=== PATIENT | female | born 1965 | race Caucasian/White ===

== ENCOUNTER 2017-07-15 05:46 | Day surgery (SDC) | payer OTHER ==
[2017-07-15] MEDS ORDERED: LIDOCAINE 1% 2 ML INJ ID PRN (06:11)
[2017-07-15] MEDS ORDERED: LR 1,000 ML IV ONE (06:11)
[2017-07-15] MEDS ORDERED: BUPIVACAINE/EPI 0.5% 30 ML SDV ONE (06:50)
[2017-07-15] MEDS ORDERED: BUPIVACAINE 0.5% 30 ML SDV ONE (06:51)
[2017-07-15] MEDS ORDERED: ceFAZolin 2 GM/SWFI 2 GM/20 ML SYR IVP ONE (07:00)
--- NOTE | 2017-07-15 07:07 | PDHPUP ---
History & Physical Update H&P update statement: This history and physical update is based on an assessment of the patient which was completed after admission or registration (within 24 hours), but prior to the surgery/procedure. H&P update: H&P reviewed & patient examined, no change in patient's condition since H&P completed
[2017-07-15] MEDS ORDERED: MIDAZOLAM 2 MG/2 ML VIAL IVP ONE (07:10)
--- NOTE | 2017-07-15 07:13 | PDANEPAE ---
ANE Past Medical History - Cardiovascular History Hx Hypertension: Yes Hx Arrhythmias: No Hx Chest Pain: No Hx Coronary Artery / Peripheral Vascular Disease: No Hx CHF / Valvular Disease: No Hx Palpitations: No - Pulmonary History Hx COPD: No Hx Asthma/Reactive Airway Disease: No Hx Recent Upper Respiratory Infection: No Hx Oxygen in Use at Home: No Hx Sleep Apnea: No Sleep Apnea Screening Result - Last Documented: Negative - Neurologic History Hx Cerebrovascular Accident: No Hx Seizures: No Hx Dementia: No - Endocrine History Hx Diabetes: Yes Hypothyroid: No Hyperthyroid: No Obesity: mild Endocrine History Comment: DM II - Renal History Hx Renal Disorders: No - Liver History Hx Hepatic Disorders: No - Neurological & Psychiatric Hx Hx Neurological and Psychiatric Disorders: No - Cancer History Hx Cancer: No - Congenital Disorder History Hx Congenital Disorders: No - GI History Hx Gastrointestinal Disorders: Yes Gastrointestinal History Comment: ACID REFLUX - Other Health History Other Health History: NEG - Chronic Pain History Chronic Pain: Yes (GENERALIZED) - Surgical History Prior Surgeries: 2008 DISC SURGERY LUMBAR. 2009 DISC SURGERY LUMBAR. 2009 FUSION LUMBAR. L HAND SURGERY ANE Review of Systems Review of Systems: - Exercise capacity METS (RN): 4 METS ANE Patient History - Allergies Allergies/Adverse Reactions: oxycodone [From OxyContin] Allergy (Verified 07/07/17 12:36) INCREASED HEART RATE & SOB Penicillins Allergy (Verified 07/13/17 16:51) Rash - Home Medications Home Medications: Ambien 07/07/17 [Last Taken 07/14/17] Aspirin 07/07/17 [Last Taken 07/08/17] Biotin 07/07/17 [Last Taken 07/08/17] Hydrocodone Bit/Acetaminophen 07/07/17 [Last Taken 07/14/17] Metformin HCl 07/07/17 [Last Taken 07/13/17] Metoprolol Succinate 07/07/17 [Last Taken 07/15/17 04:30] Pantoprazole Sodium 07/07/17 [Last Taken 07/15/17 04:30] Tradjenta 07/07/17 [Last Taken 07/14/17] - NPO status NPO Since - Liquids (Date): 07/14/17 NPO Since - Liquids (Time): 20:00 NPO Since - Solids (Date): 07/14/17 NPO Since - Solids (Time): 19:00 - Smoking Hx Smoking Status: Never smoked - Family Anes Hx Family Hx Anesthesia Complications: NEG ANE Labs/Vital Signs - Vital Signs Blood Pressure: 155/85 Heart Rate: 67 Respiratory Rate: 16 O2 Sat (%): 96 Height: 154.94 cm Weight: 58 kg ANE Physical Exam - Airway Neck exam: FROM Mallampati Score: Class 1 Mouth exam: normal dental/mouth exam - Pulmonary Pulmonary: no respiratory distress - Cardiovascular Cardiovascular: regular rate and rhythym - ASA Status ASA Status: II ANE Anesthesia Plan Anesthesia Plan: general endotracheal anesthesia
[2017-07-15] MEDS ORDERED: ROCURONIUM 100 MG/10 ML VIAL ONE (07:18)
[2017-07-15] MEDS ORDERED: fentaNYL 250 MCG/5 ML INJ ONE (07:18)
[2017-07-15] MEDS ORDERED: PROPOFOL/EMULSION 500 MG/50 ML BOTTLE IV ONE (07:18)
[2017-07-15] MEDS ORDERED: MIDAZOLAM 2 MG/2 ML VIAL ONE (07:19)
[2017-07-15] MEDS ORDERED: LIDOCAINE 2% 5 ML SDV ONE (07:22)
[2017-07-15] MEDS ORDERED: DEPO METHYLPREDNISOLONE 40 MG/ML SDV ONE (07:40)
[2017-07-15] MEDS ORDERED: ONDANSETRON 4 MG/2 ML VIAL ONE (08:33)
[2017-07-15] MEDS ORDERED: DEXAMETHASONE 4 MG/ML VIAL ONE (08:33)
[2017-07-15] MEDS ORDERED: SUGAMMADEX SODIUM 200 MG/2 ML VIAL IVP ONE (09:04)
[2017-07-15] MEDS ORDERED: KETOROLAC 30 MG/1 ML SDV ONE (09:04)
[2017-07-15] MEDS ORDERED: HYDROmorphONE/DILAUDID 2 MG/ML INJ ONE (09:07)
[2017-07-15] MEDS ORDERED: LABETALOL HCL 5 MG/ML 20 ML MDV ONE (09:30)
[2017-07-15] MEDS ORDERED: LABETALOL HCL 5 MG/ML 20 ML MDV IVP PRN (09:32)
[2017-07-15] MEDS ORDERED: NALOXONE HCL 0.4 MG/ML INJ IVP PRN ×2 (09:32→09:33)
[2017-07-15] MEDS ORDERED: HYDROmorphONE/DILAUDID 1 MG/ML INJ IVP PRN (09:32)
[2017-07-15] MEDS ORDERED: PROMETHAZINE HCL 25 MG/ML INJ IVP PRN (09:33)
[2017-07-15] MEDS ORDERED: LR 500 ML IV PRN (09:33)
--- NOTE | 2017-07-15 09:34 | POSTANESTH ---
Post Anesthetic Evaluation Cardiovascular Status: Normal, Stable Respiratory Status: Normal, Stable Level of Consciousness/Mental Status: Can Participate in Eval Pain Control: Adequate, Prn Tx Ordered Nausea/Vomiting Control: Adequate, Prn Tx Ordered Complications Possibly Related to Anesthesia: None Noted
[2017-07-15] MEDS ORDERED: fentaNYL 100 MCG/2 ML INJ ONE (09:39)
--- NOTE | 2017-07-15 09:39 | POSTOPPROG ---
Post Op Note Date of Operation: 07/15/17 Surgeon: Kalina Devries Barge Loader: Veronique Harris PA-C Anesthesiologist: Dr. Roach Anesthesia: GET(General Endotracheal) Pre-op Diagnosis: right shoulder pain Post-op Diagnosis: right shoulder pain Indication: right shoulder pain Procedure: R shoulder SAD, DCE, debridement, bicep tenotomy; trigger finger injection Inf/Abcess present in the surg proc area at time of surgery?: No EBL: Minimal Complications: none
[2017-07-15] MEDS: fentaNYL 100 MCG/2 ML INJ IVP PRN ×2 (09:40→09:47)
--- NOTE | 2017-07-15 09:41 | SOAPPROG ---
SOAP Progress Note Assessment/Plan: Assessment/Plan: 52y/o female s/p right shoulder SAD, DCE, debridement, biceps tenotomy; 3rd digit trigger finger injection - orders as written - sling, ok for pendulum swings - home when PACU criteria met - call with issues or concerns 07/15/17 09:39 Subjective: Right shoulder pain Objective: Vital Signs Temp Pulse Resp BP Pulse Ox 35.8 C L 58 L 17 160/90 H 99 07/15/17 09:33 07/15/17 09:33 07/15/17 09:36 07/15/17 09:36 07/15/17 09:36 NAD, mild distress due to pain EOMi, face symmetric MAEx4 incisions clean, dressed ICD10 Worksheet Patient Problems: Problems Problem Status Onset Shoulder pain Acute - ICD10 Problem Qualifiers (1) Shoulder pain
[2017-07-15] MEDS ORDERED: HYDROmorphONE/DILAUDID 1 MG/ML INJ ONE (10:06)
[2017-07-15 10:16] VITALS: RESP 16; TEMP 97
--- NOTE | 2017-07-15 10:32 | GOP ---
[f rep st] OPERATIVE REPORT DATE OF OPERATION: 07/15/2017 SURGEON: Kalina Devries MD WEIGHT LOSS PHYSICIAN: JUAN Du ANESTHESIA: General. PREOPERATIVE DIAGNOSIS: Impingement syndrome, with severe biceps tendinitis, SLAP tear and partial-t hickness rotator cuff tear with acromioclavicular arthritis right shoulder and trigger finger right m iddle finger. POSTOPERATIVE DIAGNOSIS: Impingement syndrome with severe biceps tendinitis, SLAP tear and partial t hickness rotator cuff tear with acromioclavicular arthritis right shoulder and trigger finger right m iddle finger. PROCEDURE PERFORMED: Arthroscopy, arthroscopic debridement of SLAP tear, biceps tendon and subacromi al bursitis with biceps tenotomy, subacromial decompression, distal clavicle excision and injection o f trigger finger, right middle finger. FINDINGS: A diagnostic arthroscopy of the right shoulder was performed with the following findings: The patient had normal glenohumeral articular cartilage. She had a normal labrum aside from the are a of the biceps anchor from 10 o'clock to 2 o'clock where she had a SLAP tear. She had severe biceps tendinitis with fraying of the biceps tendon. The biceps tendon was released and the SLAP tear was debrided. The undersurface of the rotator cuff was inspected and the patient did have a partial-thic kness rotator cuff tear involving the supraspinatus. This involved approximately 20%-30% of the thic kness of the tendon. The articular side of the rotator cuff was debrided with a shaver. The scope w as then placed in the subacromial space and extensive debridement of subacromial bursitis was perform ed. The rotator cuff was inspected from the bursal surface and noted to be intact. The patient had a large anterolateral subacromial spur which was removed. Approximately 8-10 mm of the anterolateral acromion was removed with a bur. The subacromial decompression was carried across to the AC joint. Once the subacromial space was well decompressed, the instrumentation was removed and the distal cla vicle excision was performed. A 1 cm piece of the distal clavicle was excised. The patient was note d to have significant loss of the articular cartilage in the AC joint as well as spur on the undersur face of the clavicle. Finally, at the completion of the procedure, the right middle finger was injec franco with 40 mg of Depo-Medrol and 1 cc of Marcaine into the flexor tendon sheath at the A1 thad. ESTIMATED BLOOD LOSS: Minimal. DESCRIPTION OF PROCEDURE: The patient was taken to the operating room, placed in a supine position o n the operating table. Following induction of adequate general inhalation anesthesia, the shoulder a nd arm were prepped and draped in the usual sterile manner. The patient was placed in the lateral de cubitus position and carefully padded. Her arm was placed in 10 pounds of longitudinal traction. Sh e received 2 g of IV Ancef. The arthroscope was introduced through a posterior portal and the instru mentation through an anterior portal. A diagnostic arthroscopy was performed with the above-noted fi ndings. Our attention was turned first to the intra-articular pathology. The shaver was used to alyse ride the biceps tendon and the SLAP tear. It was also used to debride the undersurface of the rotato r cuff. The basket was then inserted and a biceps tenotomy was performed. Once this was completed, the scope was placed in the subacromial space and a lateral working portal was created. Further debr idement of the subacromial space was performed. Once the undersurface of the acromion was cleared, t he bur was inserted and a subacromial decompression was performed. The rasp was then used to smooth the undersurface of the acromion. The bursal surface of the rotator cuff was carefully inspected and no significant tearing of the bursal side was noted. The instrumentation was then removed and a 3 c m incision was made along the distal end of the clavicle. Incision was carried down through the subc utaneous tissue to the AC joint. The fascia overlying the AC joint was split in a T-fashion and retr acted and then the distal 1 cm clavicle was excised with a saw. The wound was irrigated out and the fascia was repaired using 0 Vicryl followed by 2-0 Vicryl, the subcutaneous tissue, and 4-0 Vicryl in the skin. Steri-Strips and sterile dressings were applied. The portals were closed using 4-0 nylon . The shoulder was injected with 20 cc of 0.5% Marcaine with epinephrine. Finally, the hand was pre pped and the flexor tendon sheath of the middle finger on the right hand was injected with 40 mg of D epo-Medrol and 1 cc of Marcaine. The patient tolerated the procedure well. There were no complicati ons. Estimated blood loss minimal. Final sponge, needle counts were correct. The patient was trans ferred to the recovery room in good condition. /[id number]/MODL
[2017-07-15 11:20] VITALS: O2SAT 95
[2017-07-15 11:21] VITALS: BP 152/78; PULSE 57
== END 2017-07-15 11:08 | disposition home or self-care (01) ==
LOC: FSGY 05:46 → MERGE 05:46 → FSGY 11:08
PROVIDERS: ATTEND Orthopaedic Surgery
DX: M75.41 Impingement syndrome of right shoulder (principal); M75.111 Incomplete rotator cuff tear or rupture of right shoulder, not specified as traumatic; M75.51 Bursitis of right shoulder; M75.21 Bicipital tendinitis, right shoulder; M67.921 Unspecified disorder of synovium and tendon, right upper arm; M19.011 Primary osteoarthritis, right shoulder; M25.711 Osteophyte, right shoulder; M65.331 Trigger finger, right middle finger; M25.511 Pain in right shoulder; E11.9 Type 2 diabetes mellitus without complications; K21.9 Gastro-esophageal reflux disease without esophagitis; I10 Essential (primary) hypertension
CPT/HCPCS: J0171; J0690; J1030; J1100; J1170; J1885; J2250; J2405; J2704; J3010; J3490

== ENCOUNTER 2018-01-24 05:55 | Day surgery (SDC) | payer OTHER ==
[2018-01-24] MEDS ORDERED: ceFAZolin 2 GM/DEXTROSE 100 ML IV ONE (06:05)
[2018-01-24] MEDS ORDERED: LR 1,000 ML IV ONE (06:07)
[2018-01-24] MEDS ORDERED: LIDOCAINE 1% 2 ML INJ ID PRN (06:07)
[2018-01-24] MEDS ORDERED: MIDAZOLAM 2 MG/2 ML VIAL IVP ONE (06:52)
--- NOTE | 2018-01-24 06:55 | PDANEPAE ---
ANE Past Medical History - Cardiovascular History Hx Hypertension: Yes Hx Arrhythmias: No Hx Chest Pain: No Hx Coronary Artery / Peripheral Vascular Disease: No Hx CHF / Valvular Disease: No Hx Palpitations: No Cardiovascular History Comment: NO CP - Pulmonary History Hx COPD: No Hx Asthma/Reactive Airway Disease: No Hx Recent Upper Respiratory Infection: No Hx Oxygen in Use at Home: No Hx Sleep Apnea: No Sleep Apnea Screening Result - Last Documented: Negative Pulmonary History Comment: DOES NOT DO STAIRS. CAN WALK 2 BLOCKS WITHOUT SOB - Neurologic History Hx Cerebrovascular Accident: No Hx Seizures: No Hx Dementia: No Neurologic History Comment: MIGRAINES. N/T JOLENE ARMS - Endocrine History Hx Diabetes: Yes Endocrine History Comment: DM II - Renal History Hx Renal Disorders: No - Liver History Hx Hepatic Disorders: No - Neurological & Psychiatric Hx Hx Neurological and Psychiatric Disorders: No - Cancer History Hx Cancer: No - Congenital Disorder History Hx Congenital Disorders: No - GI History GERD: mild Hx Gastrointestinal Disorders: Yes Gastrointestinal History Comment: ACID REFLUX - Other Health History Other Health History: ROTATOR CUFF INFLAMATION - Chronic Pain History Chronic Pain: Yes (RT SHLDR) - Surgical History Prior Surgeries: RT SHLDR SCOPE 07/15/17. 2008 DISC SURGERY LUMBAR. 2009 DISC SURGERY LUMBAR. 2010 FUSION LUMBAR. L HAND SURGERY ANE Review of Systems Review of Systems: - Exercise capacity METS (RN): 4 METS ANE Patient History - Allergies Allergies/Adverse Reactions: oxycodone HCl [From Percocet] Allergy (Severe, Verified 10/08/13 19:18) FAST HEART RATE/SOB Penicillins Allergy (Intermediate, Verified 10/08/13 19:18) Rash lisinopril Allergy (Unknown, Verified 07/11/14 15:21) Unknown oxycodone [From OxyContin] Allergy (Verified 07/07/17 12:36) INCREASED HEART RATE & SOB - Home Medications Home medications: home medication list seen and reviewed Home Medications: Hydrocodone/Acetaminophen [[place] 7.5-325 Tablet] 1 - 2 each PO Q4-6PRN PRN 07/17 [Last Taken 01/23/18 22:00] glipiZIDE [Glipizide] 20 mg PO BID 07/17/14 [Last Taken 01/23/18] metFORMIN HCL [Glucophage] 500 mg PO BIDMEAL 07/17/14 [Last Taken 01/23/18] Ambien HS 07/07/17 [Last Taken 01/23/18 22:00] Aspirin DAILY 07/07/17 [Last Taken 2 Weeks Ago ~01/10/18] Metoprolol Succinate DAILY 07/07/17 [Last Taken 01/23/18] Tradjenta DAILY 07/07/17 [Last Taken 01/23/18] HCTZ (*) DAILY 01/11/18 [Last Taken 01/24/18 05:00] Pantoprazole Sodium DAILY 01/11/18 [Last Taken 01/24/18 05:00] SIMVASTATIN HS 01/11/18 [Last Taken 01/23/18] - NPO status NPO Status: no food or drink >8 hours NPO Since - Liquids (Date): 01/24/18 NPO Since - Liquids (Time): 05:00 NPO Since - Solids (Date): 01/23/18 NPO Since - Solids (Time): 22:00 - Anes Hx Anes Hx: no prior problems - Smoking Hx Smoking Status: Never smoked - Family Anes Hx Family Hx Anesthesia Complications: NEG ANE Labs/Vital Signs - Vital Signs Blood Pressure: 143/89 Heart Rate: 81 Respiratory Rate: 16 O2 Sat (%): 96 Height: 157.48 cm Weight: 69.853 kg ANE Physical Exam - Airway Neck exam: FROM Mallampati Score: Class 2 Mouth exam: normal dental/mouth exam - Pulmonary Pulmonary: no respiratory distress, no rales or rhonchi, clear to auscultation - Cardiovascular Cardiovascular: regular rate and rhythym, no murmur, rub, or gallop - ASA Status ASA Status: II ANE Anesthesia Plan Anesthesia Plan: general endotracheal anesthesia
[2018-01-24] MEDS ORDERED: BUPIVACAINE/EPI 0.5% 30 ML SDV ONE ×2 (06:56→07:19)
[2018-01-24] MEDS ORDERED: EPINEPHrine 30 MG/30 ML MDV (0.1 MG/0.1 ML) ONE (06:57)
[2018-01-24] MEDS ORDERED: POLYMYXIN B SULFATE 500,000 UNIT/10 ML SYR IRR ONE (06:57)
[2018-01-24] MEDS ORDERED: BACITRACIN 50,000 UNITS/10 ML SYR IRR ONE (06:57)
[2018-01-24] MEDS ORDERED: BUPIVACAINE 0.5% 30 ML SDV ONE (06:57)
[2018-01-24] MEDS ORDERED: DEXAMETHASONE 4 MG/ML VIAL ONE (07:02)
[2018-01-24] MEDS ORDERED: fentaNYL 100 MCG/2 ML INJ ONE (07:02)
[2018-01-24] MEDS ORDERED: ONDANSETRON 4 MG/2 ML VIAL ONE (07:02)
[2018-01-24] MEDS ORDERED: ROCURONIUM 50 MG/5 ML VIAL ONE (07:02)
[2018-01-24] MEDS ORDERED: PROPOFOL 200 MG/20 ML VIAL ONE (07:02)
[2018-01-24] MEDS ORDERED: LIDOCAINE 2% 2 ML INJ ONE ×2 (07:02→07:05)
[2018-01-24] MEDS ORDERED: NEOSTIGMINE METHYLSULFATE 5 MG/5 ML SYR ONE (07:03)
[2018-01-24] MEDS ORDERED: GLYCOPYRROLATE 0.2 MG/1 ML VIAL ONE ×2 (07:03)
[2018-01-24] MEDS ORDERED: LIDO/EPI 2%** Not for Epidural 20 ML MDV ONE (07:23)
[2018-01-24] MEDS ORDERED: HYDROCODONE/APAP 5/325 TAB PO PRN ×2 (10:11→10:12)
[2018-01-24] MEDS ORDERED: fentaNYL 100 MCG/2 ML INJ IVP PRN (10:11)
[2018-01-24] MEDS ORDERED: NALOXONE HCL 0.4 MG/ML INJ IVP PRN (10:11)
[2018-01-24] MEDS ORDERED: LR 500 ML IV PRN (10:11)
[2018-01-24] MEDS ORDERED: LABETALOL HCL 5 MG/ML 20 ML MDV IVP PRN (10:11)
[2018-01-24] MEDS ORDERED: ONDANSETRON DISINTEGRATING 4 MG TAB PO PRN (10:11)
[2018-01-24] MEDS ORDERED: ACETAMINOPHEN 500 MG TAB PO PRN (10:11)
[2018-01-24] MEDS ORDERED: ONDANSETRON 4 MG/2 ML VIAL IVP PRN ×2 (10:11)
[2018-01-24] MEDS ORDERED: MEPERIDINE 25 MG/0.5 ML AMP IVP PRN (10:11)
[2018-01-24] MEDS ORDERED: PROMETHAZINE HCL 25 MG/ML INJ IVP PRN (10:11)
--- NOTE | 2018-01-24 10:14 | POSTANESTH ---
Post Anesthetic Evaluation Cardiovascular Status: Similar to Pre-Op Cond Respiratory Status: Normal, Stable, Similar to Pre-op Cond. Level of Consciousness/Mental Status: Can Participate in Eval, Mildly Sleepy, Arousable Pain Control: Inadeq, Add Tx Required Nausea/Vomiting Control: Adequate, Prn Tx Ordered Complications Possibly Related to Anesthesia: None Noted
--- NOTE | 2018-01-24 10:21 | POSTOPPROG ---
Post Op Note Date of Operation: 01/24/18 Surgeon: Kalina Devries Manager Of Application Development: Veronique Harris PA-C Anesthesiologist: Dr. Benton Anesthesia: GET(General Endotracheal) Pre-op Diagnosis: right shoulder pain, rotator cuff tear, trigger finger Post-op Diagnosis: rotator cuff tear, trigger finger Indication: right shoulder pain, trigger finger Procedure: right shoulder rotator cuff repair, right trigger finger release Inf/Abcess present in the surg proc area at time of surgery?: No EBL: Minimal Complications: none
--- NOTE | 2018-01-24 10:23 | SOAPPROG ---
SOAP Progress Note Assessment/Plan: Assessment/Plan: 52yo female s/p right shoulder rotator cuff repair, trigger finger release -stable and doing well - sling at all times - splint for hand - cryocuff - orders as written, dc when PACU criteria met - call with issues/concerns, f/u in 7 days 01/24/18 10:21 Subjective: Right shoulder pain Objective: Vital Signs Temp Pulse Resp BP Pulse Ox 36.7 C 81 16 143/89 H 96 01/24/18 06:22 01/24/18 06:55 01/24/18 06:55 01/24/18 06:55 01/24/18 06:55 NAD, well appearing, no distress EOMi, face symmetric wiggles fingers on the right incisions clean, dressed ICD10 Worksheet Patient Problems: Problems Problem Status Onset Shoulder pain Acute
[2018-01-24 12:53] VITALS: BP 137/91
--- NOTE | 2018-01-24 18:21 | GOP ---
[f rep st] OPERATIVE REPORT DATE OF OPERATION: 01/24/2018 SURGEON: Kalina Devries MD DRAPERY CUTTER MACHINE: Kaley Harris PA-C. ANESTHESIA: General with interscalene block. PREOPERATIVE DIAGNOSIS: Rotator cuff tear right shoulder, trigger finger right long finger. POSTOPERATIVE DIAGNOSIS: Rotator cuff tear right shoulder, trigger finger right long finger. PROCEDURE PERFORMED: Arthroscopy, arthroscopic debridement of rotator cuff tear and arthroscopic rotator cuff repair right shoulder, with trigger finger release right long finger. FINDINGS: A diagnostic arthroscopy of the right shoulder was performed with the following findings. The patient had normal glenohumeral articular cartilage. Patient had a previous biceps tenodesis. The biceps tendon was absent. There was no significant tear of the superior labrum. The entire labrum was normal in appearance. The patient had some mild fraying of the superior fibers of subscapularis, which were debrided with a shaver. The patient had a near full-thickness articular sided rotator cuff tear involving approximately 90% of the fibers of the supraspinatus tendon. The scope was then placed in the subacromial space, and the patient had severe subacromial bursitis. Subacromial bursa was debrided. The rotator cuff was inspected from the bursal surface and was intact from the bursal surface. The remaining fibers of the rotator cuff were released. This was approximately 10% of the fibers of the supraspinatus. There was significant degeneration of the tendon quality throughout the supraspinatus tendon. An arthroscopic rotator cuff repair was performed. Two Fiber Tapes were placed in horizontal mattress fashion through the supraspinatus tendon. The tendon was then fixated laterally in the greater tuberosity with 2 SwiveLock suture anchors. The posterior limbs from both sides of the Fiber Tapes were pulled anterior into the anterior anchor and then anterior limbs were pulled posteriorly into the posterior anchor. This pulled the tendon down into anatomic position and compressed it at the footprint against a bed of bleeding bone, which was created with a bur. Excellent repair of the tendon was obtained. Once this was completed, the hand was exposed and the trigger finger release was performed on the right middle finger. An incision was made at the base of the middle finger in the region of the MCP joint. The A1 thad was then released in its entirety. There was complete obliteration of the triggering postop. ESTIMATED BLOOD LOSS: Minimal. DESCRIPTION OF PROCEDURE: The patient was taken the operating room, placed in supine position on the operating table. Following induction of adequate general anesthesia and placement of an interscalene block, the patient was turned to the lateral decubitus position and carefully padded. The shoulder and arm were then prepped and draped in the usual sterile manner. The patient received 1 g of IV Ancef. The arthroscope was introduced through a posterior portal and the instrumentation through an anterior portal. A diagnostic arthroscopy was performed with the above-noted findings. Our attention was turned first to the intra-articular pathology. The shaver was used to debride the synovitis is within the shoulder joint. The patient did have marked synovitis. The superior fibers of the subscapularis were also debrided. Finally, the undersurface of the rotator cuff was debrided. The scope was then placed in the subacromial space and a lateral working portal was created. Further debridement of the subacromial space was also performed. There was severe subacromial bursitis. The bursal surface of the rotator cuff was inspected and there was attenuation of the supraspinatus noted. The remaining fibers of the supraspinatus were released, and then, the edge of the supraspinatus was debrided. The tendon quality was poor. The footprint area was burred to create a bed of bleeding bone. Next, the scorpion suture passer was used to pass 2 Fiber Tapes in a horizontal mattress fashion. The lateral aspect of the greater tuberosity was cleared and then 2 SwiveLock suture anchors were placed laterally, 1 containing the posterior limbs of each to that Fiber Tapes and the other containing the anterior limbs of each of the Fiber Tapes. This pulled the tendon down into anatomic position and compressed at the footprint. Anatomic repair of the tendon was obtained. The instrumentation was then removed and the incisions were closed using 4-0 nylon in interrupted fashion. Next our attention was turned to the left trigger finger. The hand had been previously prepped. It was exposed. A transverse incision was made over the region of the MCP joint of the long finger on the palmar aspect of the hand. Incision was carried down through the subcutaneous tissue exposing the flexor tendon sheath. The A1 thad was located and released in its entirety. The incision was then closed using 4-0 nylon in interrupted fashion. Sterile dressings were applied. The patient tolerated the procedure well, and there were no complications. Estimated blood loss minimal. Final sponge, needle counts were correct. The patient was transported to the recovery room in good condition. ADDENDUM: In addition to the 2 SwiveLock suture anchors, there was a small dog ear at the posterior apex of the rotator cuff repair, so a FiberLink suture was placed in this area with the Gigwalkion suture passer. It was then tacked down using a 3.5 Arthrex SutureTak anchor posterior to the other 2 anchors. This reapproximated the posterior most aspect of the rotator cuff and compressed it down to the footprint area. /[id number]/MODL and [id number]/MODL [facility]
== END 2018-01-24 12:41 | disposition home or self-care (01) ==
LOC: FSGY 05:55
PROVIDERS: ATTEND Orthopaedic Surgery
PROC: 0LQ24ZZ Repair Left Shoulder Tendon, Percutaneous Endoscopic Approach (ICD-10-PCS; principal; 2018-01-24 07:15)
PROC: 0MB24ZZ Excision of Left Shoulder Bursa and Ligament, Percutaneous Endoscopic Approach (ICD-10-PCS; principal; 2018-01-24 07:15)
PROC: 0LN70ZZ Release Right Hand Tendon, Open Approach (ICD-10-PCS; principal; 2018-01-24 07:15)
DX: M75.121 Complete rotator cuff tear or rupture of right shoulder, not specified as traumatic (principal); M65.331 Trigger finger, right middle finger
CPT/HCPCS: C1713; J0171; J0690; J1100; J2250; J2405; J2704; J2710; J3010

== ENCOUNTER 2018-11-14 07:39 | Emergency (ER) | payer OTHER ==
[2018-11-14 07:44] VITALS: BP 153/89
--- NOTE | 2018-11-14 08:03 | EDPHY ---
H & P Time Seen by Provider: 11/14/18 07:52 HPI/ROS: CHIEF COMPLAINT: Low back pain HISTORY OF PRESENT ILLNESS: The patient is a 53-year-old female who presents emergency department low back pain. Patient had a diskectomy in 2008 followed by a fusion [place] [address] Gopi Faulkner. Patient has been doing well until last Wednesday when she developed diffuse bilateral low back pain. Her pain is moderate. It is worse with movement. A.m. Radiates slightly down to her right buttock. She has had no numbness or tingling. No weakness. No incontinence of urine or stool. No fever. Patient has no recent trauma or fall. Patient was started on baclofen by the [facility]. This is not alleviating her symptoms. The patient takes 1 Vicodin tablet in the morning and 1 Vicodin tablet in the evening with no relief. The patient cannot take any ibuprofen because she recently had an injection in the right shoulder. She was told she cannot have any anti-inflammatory medicine for 1 month. REVIEW OF SYSTEMS: 10 systems were reveiwed and are negative with the exception of the elements mentioned in the history of present illness. Past Medical/Surgical History: Includes back pain, shoulder pain, hypertension, GERD, DJD, migraine Past surgical history: Includes back surgery, shoulder surgery Social history: Patient does not smoke Smoking Status: Never smoked Physical Exam: Vitals noted GENERAL: Mild acute distress, alert. HEENT: Eyes normal to inspection, normal pharynx, no signs of dehydration. NECK: Normal, supple. RESPIRATORY: Clear to auscultation bilaterally, no rales, rhonchi or wheezing. CVS: Regular rate and rhythm, no rubs, murmurs, or gallops. ABDOMEN: Soft, nontender, nondistended, no organomegaly. BACK: Normal to inspection, no CVA tenderness. Patient has bilateral low back tenderness to palpation just above her SI joints. There is no palpable mass. Patient has minimal midline tenderness to palpation in the lumbar spine but this is minimal compared to her lateral tenderness per her report. Negative leg raise. SKIN: Normal color, no rash, warm, dry. No pallor. EXTREMITIES: No pedal edema, no calf tenderness, no Homans sign or cords, no joint swelling. NEURO/PSYCH: Alert and oriented, normal mood and affect, normal motor sensory exam. Constitutional: Initial Vital Signs Temperature (C) 36.9 C 11/14/18 07:42 Heart Rate 77 11/14/18 07:42 Respiratory Rate 18 11/14/18 07:42 Blood Pressure 153/89 H 11/14/18 07:42 O2 Sat (%) 99 11/14/18 07:42 O2 Delivery Mode Room Air Allergies/Adverse Reactions: oxycodone HCl [From Percocet] Allergy (Severe, Verified 11/14/18 07:45) FAST HEART RATE/SOB Penicillins Allergy (Intermediate, Verified 11/14/18 07:45) Rash lisinopril Allergy (Unknown, Verified 11/14/18 07:45) Unknown oxycodone [From OxyContin] Allergy (Verified 11/14/18 07:45) INCREASED HEART RATE & SOB Home Medications: Medication Instructions Recorded Hydrocodone/Acetaminophen [Anson 1 - 2 each PO Q4-6PRN PRN 07/17/14 7.5-325 Tablet] glipiZIDE [Glipizide] 20 mg PO BID 07/17/14 metFORMIN HCL [Glucophage] 500 mg PO BIDMEAL 07/17/14 Ambien HS 07/07/17 Aspirin DAILY 07/07/17 Metoprolol Succinate DAILY 07/07/17 Tradjenta DAILY 07/07/17 HCTZ (*) DAILY 01/11/18 Pantoprazole Sodium DAILY 01/11/18 SIMVASTATIN HS 01/11/18 Diazepam [Valium] 5 mg PO Q6 #11 tab 11/14/18 predniSONE 20 mg PO DAILY 4 Days tab 11/14/18 Medical Decision Making ED Course/Re-evaluation: In the emergency department I discussed possible etiologies with the patient. I answered all her questions. At this time I do not feel the patient needs emergent imaging. She has no focal neurologic deficit. She has no significant midline tenderness to palpation and no recent trauma. Patient will be given a prescription of prednisone. I instructed on appropriate use of hydrocodone. She will take 2 tablets every 4 hr for her worsening pain. Patient will also be given a prescription of Valium for muscle spasms. Patient will follow up with Dr. Gopi Faulkner. She was given warnings prior to leaving. She will return worsening symptoms. Differential Diagnosis: My differential includes but is not limited to low back pain, musculoskeletal strain, disc herniation, hardware disruption, fracture, cauda equina syndrome Departure - Departure Disposition: Home, Routine, Self-Care Clinical Impression: Low back pain Qualifiers: Chronicity: acute Back pain laterality: bilateral Sciatica presence: with sciatica Sciatica laterality: sciatica of right side Qualified Code(s): M54.41 - Lumbago with sciatica, right side Condition: Good Instructions: Acute Low Back Pain (ED) Additional Instructions: Return with increasing pain, weakness, numbness, persistent fever or any other concerns. Call Dr. Gopi Faulkner's office to make the next available appointment. You can take Vicodin 2 tablets every 4 hr for your pain. Use your other prescriptions as prescribed. Referrals: Lisseth Andrea MD [Primary Care Provider] - 2-3 days, if not improved Fito Faulkner MD [Medical Doctor] - 5-7 days, call for appt. Prescriptions: Diazepam [Valium] 5 mg PO Q6 #11 tab predniSONE 20 mg PO DAILY 4 Days tab
[2018-11-14] MEDS ORDERED: predniSONE 20 MG TAB PO ONE (08:05)
[2018-11-14] MEDS ORDERED: DIAZEPAM 5 MG TAB PO ONE (08:05)
== END 2018-11-14 08:18 | disposition home or self-care (01) ==
DX: M54.41 Lumbago with sciatica, right side (principal); I10 Essential (primary) hypertension
CPT/HCPCS: J7512